=== PATIENT | male | born 1980 | race Caucasian/White ===

== ENCOUNTER 2025-03-07 20:13 | Emergency (ER) | payer BC, SELFPAY ==
[2025-03-07 20:17] VITALS: BP 138/100
--- NOTE | 2025-03-07 20:36 | ED TECH ---
EKG DONE IN TRIAGE DID NOT CROSS OVER TO CHART. LABELED WITH A DEMO LABEL & SCANNED IN BY CORPORATE DEVELOPMENT ASSOCIATE.
[2025-03-07 20:42] LABS: Hematocrit 45.1 % (39.0-52.0); Hemoglobin 15.4 g/dL (13.0-18.0); Mean Corp Hgb Conc. 34.1 g/dL (33.0-37.0); Mean Corpuscular Volume 91.7 fL (80.0-94.0); Nucleated Red Blood Cells % 0 % (-); Platelet Count 304 10^3/uL (130-400); Red Cell Dist. Width 11.9 % (11.5-14.5)
[2025-03-07 21:00] VITALS: BP 131/93
[2025-03-07 21:05] VITALS: BMI 18.1
[2025-03-07 21:07] LABS: ALT (SGPT) 14 U/L (0-50); AST (SGOT) 21 U/L (17-59); Albumin 4.9 g/dl (3.5-5.0); Alkaline Phosphatase 63 U/L (38-126); Blood Urea Nitrogen 11 mg/dl (9-20); Calcium 9.8 mg/dl (8.4-10.2); Carbon Dioxide 27 mmol/L (22-30); Chloride 102 mmol/L (98-107); Estimated Creatinine Clearance 103 ml/min; Glucose 93 mg/dl (70-99); Potassium 4.5 mmol/L (3.5-5.1); Sodium 137 mmol/L (135-145); Total Protein 7.5 g/dl (6.3-8.2); Troponin I 0.015 ng/ml; eGFR > 60.00
--- NOTE | 2025-03-07 21:44 | ED.GENMED ---
History of Present Illness
General
Chief Complaint: Fainting/Passed Out
Source: patient
Exam Limitations: none
Time Seen by Provider: 03/07/25 20:45
Nursing documentation reviewed up to this point in time: agreed with
History of Present Illness
History of Present Illness:
Patient to the emergency department for evaluation after syncopal event at home. Patient states that he has had episodes of dizziness over the past couple weeks. He states that he is not eating or drinking as he should. He has a prior history of
drug abuse. States he recently relapsed with cocaine use. States he is feeling some stress about this and this is contributing to his poor appetite. Tonight he reports walking from the bedroom back towards his bedroom when he passed out. He hit
the right side of his forehead on the dresser. He has a small laceration to the right side of his forehead just above the right eyebrow. He also complains of left lateral neck pain. He was brought to the emergency department by his father for
evaluation. he is awake alert and oriented on exam, cooperative. Offered crisis and Bcares services to him but he has declined
Past History
Past History
ED Past Medical History: None
ED Past Surgical History: None
Social History
Alcohol: None
Drug: Former user (Former opioid user) and Cocaine
Review of Systems
Review of Systems
Allergies reviewed?: Yes
All Other Systems: ROS reviewed and negative except as documented in HPI and ROS
Constitutional: Reports no symptoms
EENT: Reports no symptoms
Respiratory: Reports no symptoms
Cardiac: Reports no symptoms
ABD/GI: Reports no symptoms
: Reports no symptoms
Musculoskeletal: Reports neck pain
Skin: Reports other (Laceration to right forehead above the right eyebrow)
Neurological: Reports no symptoms
Psychiatric: Reports no symptoms
Phy Exam
General Physical Exam
General Presentation: well appearing and no apparent distress
General age: appears stated age
General Skin: warm and dry
General Habitus: normal
General Mental: alert
Cardiovascular Exam
Cardiovascular Exam: regular rate/rhythm and no edema
Pulmonary Exam
Pulmonary Exam: lungs clear and no respiratory distress
Neurological Exam
Neurological Exam: alert, oriented x3, CN II-XII intact, no motor deficits, no sensory deficits and speech normal
Musculoskeletal Exam
Musculoskeletal Exam: full ROM and neuro vasc intact
Skin Exam
Skin Exam: normal color, warm/dry and no rash
Psychiatric Exam
Psychiatric Exam: normal mood/affect
Course
Orders/Labs/Results
Orders:
Orders
03/07/25 20:20
EKG [Electrocardiogram (*1)] Urgent
Reason for Study: Syncope
EKG- Treatment ONCE
03/07/25 20:30
Complete Blood Count/With Diff Urgent
Comprehensive Metabolic Panel Urgent
Troponin I Urgent
03/07/25 21:13
CT Head W/o Iv Contrast Urgent
Comment:
Reason For Exam: trauma
Cervical Spine wo Contrast CT [CT Cervical Spine W/o Iv Contr] Urgent
Comment:
Reason For Exam: fall
03/07/25 21:37
Orthostatic VS- Treatment ONCE
Abnormal Lab Results
03/07/25
20:30
MCH 31.3 H pg
(27.0-31.0)
03/07/25 20:30
03/07/25 20:30
Vital Signs
Initial and Last Documented VS:
Initial Vital Signs
Temp Pulse Resp BP Pulse Ox
97.8 F 92 17 138/100 99
03/07/25 20:17 03/07/25 20:17 03/07/25 20:17 03/07/25 20:17 03/07/25 20:17
Last Documented Vital Signs
Temp Pulse Resp BP Pulse Ox
97.8 F 75 24 131/93 98
03/07/25 20:17 03/07/25 21:15 03/07/25 21:15 03/07/25 21:00 03/07/25 21:49
Procedures
Laceration Closure
Right Forehead:
Status of Wound: clean
Preparation: cleaned with saline
Revision/Debridement: routine- no revision
Wound exploration: explored to base- no FB
Type of Closure: Dermabond-skin glue
*Radiology
Radiology exam reviewed: radiology read reviewed
*Pulse Oximetry
SaO2: 98
Oxygen Mode of Delivery: Room air
Patient hypoxic: no
*EKG
Interpretation: normal
Rate: normal
Rhythm: sinus
*Critical Care Note
Total Time (30-74mins, 75-104mins- exclusive of procedures): Not Applicable
Update Note
Update Note:
Patient to the emergency department after syncopal episode at home. He states that he unfortunately relapsed back to his cocaine use. States he last used on Saturday. He admits that he has not been eating or drinking due to his drug use. On
arrival to ED he is awake and alert. Vital signs are stable and he remains afebrile. Negative tilt. Labs reviewed, no concerning findings noted. Neurologically he is at his baseline. CT of head and cervical spine was completed. No acute
findings noted. He sustained a laceration to his right forehead just above his eyebrow. That wound was cleansed with normal saline, dried, and closed with Dermabond. Steri-Strips were applied on top. Crisis and or B cares intervention was
offered to patient but he has declined at this time. He states that he does have a therapist that he is able to contact and will do so this week. He was encouraged to return to the emergency department if he needed any further assistance with his
drug issues.
ED Attending Note
-
Portions of this chart may have been created with voice recognition software.� Occasional wrong word or��sound alike� substitutions may have occurred due to the inherent limitations of voice recognition software.
Discharge Plan
Departure
Patient Disposition: Home (Routine Discharge)
Date of Disposition: 03/07/25
Time of Disposition: 22:29
Patient with high blood pressure during this ER visit?: No
Condition: Good
Covid-19: Not Applicable
Discharge Problem:
Syncope, Head injury, Facial laceration, Cervical strain, acute
Instructions: Head injury in adults, Syncope (Fainting) (DC), Neck pain - ED (DC), Skin glue - ED (DC), Laceration
Referrals:
Radha Quinteros DO [Family Provider, Family Practice] - Tomorrow
Activity Restrictions/Additional Instructions:
Return to the emergency department immediately for any changes in/worsening of your symptoms. Keep your facial laceration dry for 24 hours. Do not remove tape strips.
Interventions
Interventions:
*Risk Screen - Suicide Last Done: 03/07/25 20:19
*General Assessment Last Done: 03/07/25 20:19
*Neglect/Abuse Screening Last Done: 03/07/25 20:19
*ED COVID-19 Vaccine History Last Done: 03/07/25 20:19
*ED Influenza Vaccine History Last Done: 03/07/25 20:19
[facility] Fall Risk Assessment Tool Last Done: 03/07/25 20:13
ED- Cardiac Assessment Last Done: 03/07/25 21:06
ED- Neurological Assessment Last Done: 03/07/25 21:06
Discharge Date and Time
Print Language: DANISH
Skin Exam
Laceration
Right Forehead:
Length in cm: 2
Orientation: horizontal
Type of Laceration: simple
Any active bleeding?: no active bleeding
Distal skin color and temperature: normal-warm & good color
Normal distal neurovascular exam: Yes
Range of motion: full
[2025-03-07 22:19] VITALS: BP 127/87; BP 129/91; BP 130/96; PULSE 59; PULSE 66; PULSE 84
== END 2025-03-07 22:49 | disposition home or self-care (01) ==
LOC: EMR 20:13
PROVIDERS: EMERGENCY PHYSICIAN Emergency Medicine; FAMILY PHYSICIAN Family Medicine
DX: R55 Syncope and collapse (principal); S09.90XA Unspecified injury of head, initial encounter; S01.81XA Laceration without foreign body of other part of head, initial encounter; S16.1XXA Strain of muscle, fascia and tendon at neck level, initial encounter; W22.03XA Walked into furniture, initial encounter; F14.90 Cocaine use, unspecified, uncomplicated
CPT/HCPCS: 99284; 12011; 70450; 72125; 80053; 84484; 85025; 93005